=== PATIENT | female | born 1950 | race Caucasian/White ===

== ENCOUNTER 2017-03-26 15:19 | Inpatient (IN) | payer MEDICARE ==
[2017-03-26 16:10] VITALS: BMI 28.5
--- NOTE | 2017-03-26 18:29 | ULT ---
EXAM: CAROTID ULTRASOUND 03/26/17 HISTORY: Transient ischemic attack. COMPARISON: None. TECHNIQUE: Carbajal scale, color flow, doppler imaging with spectral waveform analysis performed in the carotid and vertebral arteries. FINDINGS: RIGHT CAROTID: There is minimal atherosclerotic disease in the right carotid bulb. Peak systolic velocity of the com mon carotid artery is 98 cm/s. Peak systolic velocity of the internal carotid artery is 96 cm/s. Syst olic ICA to CCA ratio is 1.0. LEFT CAROTID: Small amount of atherosclerotic disease in the mid to distal common carotid artery. Peak systolic vance ocity of the common carotid artery is 109 cm/s. Peak systolic velocity of the internal carotid artery is 108 cm/s. Systolic ICA to CCA ratio is 1.0. Antegrade flow in bilateral vertebral arteries. IMPRESSION: No sonographic evidence of hemodynamically significant stenosis. POS: MALLORY
[2017-03-26] MEDS ORDERED: Aspirin 81 mg Enteric Coated Tablet PO SCH (18:30)
[2017-03-26 19:03] LABS: #Basophils 0.1 thou/uL (0.0-0.2); #Eosinphils 0.1 thou/uL (0.0-0.7); #Lymphocytes 2.8 thou/uL (1.20-3.40); #Monocytes 0.4 thou/uL (0.11-0.59); #Neutrophils 3.1 thou/uL (1.40-6.50); %Basophils 0.8 % (0.0-1.0); %Eosinophils 1.6 % (0.0-10.0); %Lymphocytes 43.2 % (21.0-51.0); %Monocytes 6.8 % (0.0-10.0); %Neutrophils 47.5 % (42.0-75.0); Hemoglobin 14.7 g/dL (12.0-16.0); Mean Corpuscular HGB CONC 35.2 g/dL (32.0-36.0); Mean Corpuscular Hemoglobin 33.3 pg (27.0-31.0); Mean Corpuscular Volume 94.7 fl (81.0-99.0); Platelet Count 235 thou/uL (130-400); RBC Distribution Width 11.8 % (11.5-14.5); Red Blood Cell (RBC) Count 4.39 mill/uL (4.20-5.40); White Blood Cell (WBC) Count 6.4 thou/uL (4.8-10.8)
[2017-03-26 19:08] LABS: Prothrombin Time 13.5 SEC (12.0-14.7)
[2017-03-26 19:17] LABS: ALT (SGPT) 18 U/L (8-55); AST (SGOT) 18 U/L (5-34); Albumin 4.4 g/dL (3.4-4.8); Alkaline Phosphatase 70 U/L (40-150); Anion Gap 13 mmol/L (10-20); BUN (Urea Nitrogen) 25 mg/dL (9.8-20.1); Bilirubin, Total 0.6 mg/dL (0.2-1.2); Calc. Creatinine Clearance 81 mL/min (70-130); Calcium 9.9 mg/dL (7.8-10.44); Carbon Dioxide 26 mmol/L (23-31); Chloride 106 mmol/L (98-107); Estimated GFR-MDRD 85; Glucose 89 mg/dL (80-115); Potassium 3.8 mmol/L (3.5-5.1); Protein, Total 7.4 g/dL (6.0-8.3); Sodium 141 mmol/L (136-145)
[2017-03-26 19:50] LABS: Folate (Folic Acid) 10.6 ng/mL (7.0-31.4)
--- NOTE | 2017-03-26 20:33 | HP-2 ---
TIME AND DATE OF SERVICE: 1640 on 03/26/2017. CODE STATUS: FULL CODE. PRIMARY CARE PHYSICIAN: Direct admit from Dr. Dimas. ATTENDING: Dr. Jaramillo. RESIDENT: Duran Licona MD HISTORIAN: Patient. CHIEF COMPLAINT: TIA symptoms. HISTORY OF PRESENT ILLNESS: Savanna Shankar is a 66-year-old female with past medical history of hypertension and gastric sleeve surgery, who presents as a direct admit from Dr. Dimas for TIA workup. The patient has experienced over 40 episodes of left arm numbness and weakness starting in January, and the patient and feel that episodes were occurring much more frequency and lasting longer as of late. Initially, the symptoms lasted only a few minutes, but the most recent episode just a few days ago, lasted over an hour. The patient was recently seen at [facility] in [place] and had some work done, she was told was all negative. The patient denies any vision changes, dizziness, loss of consciousness, syncope, seizures, tongue biting, incontinence , chest pain, palpitations, dyspnea, vertigo during, before or after these episodes. The patient states that in between the episodes, she is completely asymptomatic. She does state, however, that she can tell when the episodes are going to begin, but she is unable to describe how she is able to tell. She does not smell anything or have visual changes. She states possibly dizzy, but she was very unsure. The patient endorses being "high strong and having a type A personality" but says that these symptoms are not related to her stressful situations. PAST MEDICAL HISTORY: Hypertension. PAST SURGICAL HISTORY: 1. Gastric sleeve surgery. 2. Laparoscopic cholecystectomy. 3. Total abdominal hysterectomy. 4. Breast reduction. 5. Tummy tuck. 6. Liposuction. ALLERGIES: No known drug allergies. MEDICATIONS: Valsartan and weekly allergy shots. FAMILY HISTORY: Type 2 diabetes mellitus in father and brother had a stroke. Brother still living. SOCIAL HISTORY: The patient denies tobacco, alcohol, or drug use. She is . REVIEW OF SYSTEMS: A 12-point review of systems including general, eyes, ENT, respiratory, CV, GI, , skin, musculoskeletal, neuro, and psych were all reviewed and were negative unless otherwise stated in the HPI with the exception of constipation that the patient takes [id number] medicine for. PHYSICAL EXAMINATION: VITAL SIGNS: Blood pressure, pulse, respiratory rate, temperature, pulse ox were not yet performed as the patient was a direct admit and was seen immediately upon arriving to her room. GENERAL: The patient is alert and oriented x3, in no acute distress. Well developed, well nourished, and appropriately interactive. HEENT: Pupils equal, round, react to light and accommodation. Extraocular muscles intact. Conjunctivae within normal limits. ENT: Nasal mucosa and oropharynx within normal limits. NECK: Supple without lymphadenopathy, thyromegaly, and no bruits. CARDIOVASCULAR: Regular rate and rhythm. No murmurs or gallops. Radial and pedal pulses equal and regular bilaterally. RESPIRATORY: Normal effort, no retractions. LUNGS: Clear to auscultation bilaterally. SKIN: Warm and dry without cyanosis or lesions. ABDOMEN: Soft, nontender. Bowel sounds normoactive x4. No mass or distention. EXTREMITIES: No clubbing, cyanosis or pitting edema. MUSCULOSKELETAL: Structure and tone wnl. LABORATORY DATA: No labs available because patient had just arrived to the room. ASSESSMENT AND PLAN: A 66-year-old female with past medical history of hypertension who presents with history of many episodes of transient ischemic attack like symptoms. 1. Transient ischemic attack, admit to stroke. Consider differential diagnosis including stroke, vitamin deficiency, metabolic derangement, thyroid disorders could possibly be stress related. We will check a TSH, B12, folate, fasting lipid panel, hemoglobin A1c, brain MRI, carotid Dopplers, and transthoracic echocardiogram. We will also check a 12-lead echocardiogram. 2. Hypertension. Continue home medications and monitor vitals. 3. Code status: FULL CODE. 4. Deep venous thrombosis prophylaxis, Lovenox. 5. Activity: ad luna. 6. Diet: Heart healthy with low sodium. DISPOSITION AND LENGTH OF HOSPITAL STAY: 2-3 days. Symptomatic medication will be provided. History and physical exam as well as management were discussed with Dr. Jaramillo. LORIE
[2017-03-26] MEDS: Atorvastatin Calcium 40 MG TAB PO SCH (20:43)
[2017-03-27 05:38] LABS: Cardiac Risk 3.2 (Less than 4.5)
--- NOTE | 2017-03-27 06:00 | PDOC.FM ---
- Subjective Subjective: Savanna Shankar is doing well this morning. She states that she did not get a great night of sleep due to the bed. She also states that yesterday evening she had two more brief one minute episodes of L sided weakness in her arms and legs that resolved completely and symptoms havent returned since then. She denies any other issues this morning. - Objective MAR Reviewed: Yes Vital Signs & Weight: Vital Signs (12 hours) Temp Pulse Resp BP Pulse Ox 03/27/17 03:03 98.1 F 64 16 120/60 95 03/26/17 23:25 97.6 F 62 16 179/72 H 97 03/26/17 19:15 98 F 68 16 170/78 H 96 03/26/17 19:05 98 F 68 16 96 Weight Weight 66.361 kg Result Diagrams: 03/26/17 18:39 03/26/17 18:39 <Duran Licona - Last Filed: 03/27/17 08:22> - Objective Vital Signs & Weight: Vital Signs (12 hours) Temp Pulse Resp BP Pulse Ox 03/27/17 19:04 98.5 F 67 16 139/67 96 03/27/17 15:03 97.8 F 60 18 139/63 96 03/27/17 11:03 97.5 F L 58 L 18 126/67 96 03/27/17 08:45 98 F 62 18 98 Weight Weight 66.361 kg I&O: 03/26/17 03/27/17 03/28/17 06:59 06:59 06:59 Intake Total 120 Balance 120 Result Diagrams: 03/26/17 18:39 03/26/17 18:39 <Telma Francisco - Last Filed: 03/27/17 19:14> Phys Exam - Physical Examination Constitutional: NAD HEENT: moist MMs, sclera anicteric Neck: no JVD, supple, full ROM Respiratory: no wheezing, no rales, no rhonchi, clear to auscultation bilateral Cardiovascular: RRR, no significant murmur, no rub Gastrointestinal: soft, non-tender, no distention Musculoskeletal: no edema Neurological: non-focal, normal sensation, moves all 4 limbs Psychiatric: normal affect, A&O x 3 Skin: normal turgor <Duran Licona - Last Filed: 03/27/17 08:22> Dx/Plan (1) TIA (transient ischemic attack) Status: Acute Plan: Greater than 40 episodes of Left Sided weakness/numbness in arms/legs starting in January Symptoms typically last minutes and resolve completely with no symptoms in between episodes Episodes have been becoming more frequent and lasting longer No chest pain, palpitations, vision changes, seizure like activity, GALLAGHER, facial droop Work-up TIA: Consult Neuro this morning, Carotid Doppler was negative for any hemodynamically significant stenosis TTE order, Brain MRI order TSH normal, B12 normal, Folate Normal, Cholesterol of 202 (2) Hypertension Code(s): I10 - ESSENTIAL (PRIMARY) HYPERTENSION Status: Acute Plan: Continue home meds <Duran Licona - Last Filed: 03/27/17 08:22> Attending Addendum - Attending Addendum I personally evaluated the patient and discussed the management with Dr. Licona. I agree with the History, Examination, Assessment and Plan documented above with any addition or exceptions noted below. The patient had two more episodes of tingling late last night after carotid doppler. She is feeling well this morning. Results for carotid, mri and echo are pending. Neurology has been consulted. <Telma Francisco - Last Filed: 03/27/17 19:14>
[2017-03-27] MEDS: Valsartan 80 MG TAB PO SCH (09:56)
[2017-03-27] MEDS: Aspirin 81 mg Enteric Coated Tablet PO SCH (09:57)
--- NOTE | 2017-03-27 13:17 | CON ---
DATE OF CONSULTATION: 03/27/2017 NEUROLOGY CONSULTATION CONSULTING PHYSICIAN: [facility]. IMPRESSION: Transient ischemic attack versus seizure related events versus migraine without headach e. PLAN: 1. Aspirin and Plavix. 2. Keppra 500 mg twice a day. 3. Monitor response to therapy. HISTORY OF PRESENT ILLNESS: Ms. Shankar is a 66-year-old white female with past history of hypertensi on and gastric sleeve surgery. For the last few months, she has been experiencing multiple episodes of transient left-sided weakness and never affects her speech or her face. The episodes had most of lasted 15 minutes. Most of them only last a minute or two. She has difficulty walking when it occur s. She notes some heaviness in her left hand and has difficulty writing or using her phone. The epi sodes have never left any persistent deficits. She was seen in [place] in the emergency room and her workup at that time was unremarkable. She was treated for B12 deficiency which had no effect on the events. She has had 3 events in the last day or two. She actually had an episode while I was examin ing her, this lasted about 1 minute. There was no slurred speech or effect on her ability to carry o n conversation or follow commands. It was notable for fix and drift in the left hand during the even t. Sensation was intact. Plantar responses remain downgoing. PAST MEDICAL HISTORY: As noted above. ALLERGIES: None. SOCIAL HISTORY: No tobacco or alcohol use. She is to a insurance office manager. FAMILY HISTORY: Noncontributory. REVIEW OF SYSTEMS: Otherwise, negative. PHYSICAL EXAMINATION: GENERAL: She is a healthy appearing middle-aged woman, in no distress. VITAL SIGNS: Blood pressure 126/67, temperature 97.5, pulse 58, respirations 18. HEENT: Pupils equal and reactive. Conjunctivae clear. Oropharynx clear. NECK: Supple. EXTREMITIES: No cyanosis, clubbing or edema. NEUROLOGIC: She is alert and appropriate. Her speech is fluent and clear. Cranial nerves are intac t. Motor exam after the event was unremarkable. Sensation was intact to light touch. No abnormal m ovements were seen. She can walk independently. LABORATORY STUDIES: Including a CBC, coags, and chemistry panel were all unremarkable. Carotid ultrasound did not show any stenosis. MRI of the brain showed a moderate amount of subcortic al white matter ischemic changes that appears chronic. SUMMARY: A very unusual story of multiple episodes of left-sided weakness lasting only brief interva ls of time without any residual effect. I would cover her for TIA with antiplatelet therapy and a st atin and also tried any antiepileptic approach to see if she responds to treatment.
--- NOTE | 2017-03-27 13:44 | MRI ---
NONCONTRAST BRAIN MRI: CLINICAL HISTORY: Left-sided weakness. COMPARISON: No prior imaging for comparison. FINDINGS: There is no acute territorial infarction, intracranial mass effect, midline shift, or ventriculomegal y. Mild parenchymal volume loss is present, and there is mild to moderate chronic microvascular isch emic disease. The imaged skull base flow voids are maintained. There is no intracranial or hemorrha gic susceptibility. IMPRESSION: 1. No acute intracranial abnormality. 2. Mild to moderate chronic microvascular ischemic disease. POS: MALLORY
[2017-03-27] MEDS ORDERED: Clopidogrel Bisulfate 75 MG TAB PO SCH (14:00)
[2017-03-27] MEDS ORDERED: Polyethylene Glycol 3350 17 GM Packet PO PRN (14:35)
--- NOTE | 2017-03-27 15:23 | PDOC.EVN ---
Event Note - Event Note Event Note: S: Visited patient at bedside for reexamination and to answer questions. Patient is still doing well and not having any complaints. Dr. Burger did come see patient and started Keppra, Asa, and Plavix. Brain MRI, B/l carotid doppler, and TTE have been performed. Patient states that she is had a couple quick episodes of left arm numbling and "tremors" today and she feels confused afterwards, "like it is hard to find my words". Denies any other complaints. O: Gen: In no distress CV: RRR no murmurs Resp: CTAB Msk/Neuro: Non-focal, normal sensation, normal strength and FROM A/P: Brain MRI and Carotid Doppler were unremarkable, ECHO results pending. Dr. Tariq has started Mrs. Shankar on Keppra, ASA, and plavix. We will continue to monitor symptoms.
[2017-03-27] MEDS: Atorvastatin Calcium 40 MG TAB PO SCH (21:04)
[2017-03-27] MEDS: levETIRAcetam 500 MG TAB PO SCH (21:04)
--- NOTE | 2017-03-28 05:43 | PDOC.FM ---
- Subjective Subjective: Mrs. Shankar is doing well this morning. Upon entering the room, she was dressed and said she was ready to go home today. She states that she felt great and felt that her mind was very clear. She denied any fever, chest pain, dyspnea, n/v/d. - Objective MAR Reviewed: Yes Vital Signs & Weight: Vital Signs (12 hours) Temp Pulse Resp BP BP Pulse Ox 03/28/17 04:00 97.9 F 60 16 117/61 100 03/27/17 23:48 98.3 F 82 16 143/69 H 96 03/27/17 19:50 98.5 F 67 16 96 03/27/17 19:04 98.5 F 67 16 139/67 96 Weight Weight 66.361 kg I&O: 03/26/17 03/27/17 03/28/17 06:59 06:59 06:59 Intake Total 120 Balance 120 Result Diagrams: 03/26/17 18:39 03/26/17 18:39 Radiology Reviewed by me: Yes <Duran Licona - Last Filed: 03/28/17 07:20> - Objective Vital Signs & Weight: Vital Signs (12 hours) Temp Pulse Resp BP Pulse Ox 03/28/17 11:55 98.3 F 63 16 126/70 100 03/28/17 08:00 97.7 F 62 16 03/28/17 07:55 97.7 F 62 16 138/65 100 Weight Weight 66.361 kg I&O: 03/27/17 03/28/17 03/29/17 06:59 06:59 06:59 Intake Total 120 240 480 Balance 120 240 480 Result Diagrams: 03/26/17 18:39 03/26/17 18:39 <Telma Francisco - Last Filed: 03/28/17 16:06> Phys Exam - Physical Examination Constitutional: NAD HEENT: moist MMs, sclera anicteric Neck: supple, full ROM Respiratory: no wheezing, no rales, no rhonchi, clear to auscultation bilateral Cardiovascular: RRR, no significant murmur Gastrointestinal: soft, non-tender, no distention Musculoskeletal: no edema Neurological: non-focal, normal sensation, moves all 4 limbs Psychiatric: normal affect, A&O x 3 <Duran Licona - Last Filed: 03/28/17 07:20> Dx/Plan (1) TIA (transient ischemic attack) Status: Acute Plan: Greater than 40 episodes of Left Sided weakness/numbness in arms/legs starting in January Symptoms typically last minutes and resolve completely with no symptoms in between episodes Episodes have been becoming more frequent and lasting longer No chest pain, palpitations, vision changes, seizure like activity, GALLAGHER, facial droop Work-up TIA: 03/27/17- Consult Neuro this morning, Carotid Doppler was negative for any hemodynamically significant stenosis TTE order, Brain MRI order TSH normal, B12 normal, Folate Normal, Cholesterol of 202 03/28/17- Dr. Tariq saw patient yesterday and started patient on Keppra, ASA, and plavix Echo showed EF of 55-60%, Impaired relaxation compatible with diastolic dysfunction (reversed E/A ratio), no thrombus in cardiac chambers Patient stable and likely ready with d/c today to follow up with OP neuro (2) Hypertension Code(s): I10 - ESSENTIAL (PRIMARY) HYPERTENSION Status: Acute Plan: Continue home meds-valsartan BP this morning 117/61 <Duran Licona - Last Filed: 03/28/17 07:20> Attending Addendum - Attending Addendum I personally evaluated the patient and discussed the management with Dr. Licona. I agree with the History, Examination, Assessment and Plan documented above with any addition or exceptions noted below. The patient is feeling better today. Patient's family brought genetic testing she had done previously that indicated plavix metabolism could be abnormal. Will change patient to aggrenox. She will f/u with Dr. Tariq as an outpt. <Telma Francisco - Last Filed: 03/28/17 16:06>
[2017-03-28] MEDS ORDERED: Clopidogrel Bisulfate 75 MG TAB PO SCH (09:00)
[2017-03-28] MEDS: Aspirin 81 mg Enteric Coated Tablet PO SCH (09:21)
[2017-03-28] MEDS: Valsartan 80 MG TAB PO SCH (09:21)
[2017-03-28] MEDS: levETIRAcetam 500 MG TAB PO SCH (09:21)
[2017-03-28 11:55] VITALS: BP 126/70; TEMP 98.3
--- NOTE | 2017-03-28 21:52 | DIS-2 ---
ADMISSION DATE: 03/26/2017 DISCHARGE DATE: 03/28/2017 RESIDENT: Duran Licona M.D. ADMITTING ATTENDING: Dr. Jaramillo. DISCHARGE ATTENDING: Dr. Francisco. CONSULTATIONS: Neurology, Dr. Tariq on 03/27/2017. PROCEDURES: 1. Carotid Doppler study. Impression: No sonographic evidence of hemodynamically significant stenosis. 2. Brain MRI. Impression: No acute intracranial abnormality. Mild to moderate chronic microvascular ischemic disease. 3. Echocardiogram. Summary: Ejection fraction is visually estimated at 55% to 60%, impaired relaxation compatible with diastolic dysfunction 4. No thrombus is noted in the cardiac chambers. PRIMARY DIAGNOSIS: Transient ischemic attack. SECONDARY DIAGNOSIS: Hypertension. DISCHARGE MEDICATIONS: 1. Valsartan 80 mg p.o. daily. 2. Aspirin 81 mg p.o. daily. 3. Multivitamin 1 each p.o. daily. 4. Lubiprostone 24 mcg p.o. p.r.n. 5. Probiotic 1 cap p.o. daily. 6. Aggrenox 1 cap p.o. b.i.d. 7. Atorvastatin 40 mg p.o. at bedtime. 8. Keppra 500 mg p.o. b.i.d. DISCONTINUED MEDICATIONS: Plavix. HISTORY OF PRESENT ILLNESS/HOSPITAL COURSE: Savanna Shankar is a 66-year-old female with past medical history of hypertension and gastric sleeve surgery, who presented to [facility] as a direct admit from Dr. Dimas for TIA workup. The patient had experienced over 40 episodes of left arm numbness and weakness starting in January and the patient and her has felt like these episodes were occurring more frequently and lasting longer. Initially, the symptoms only lasted a few minutes, but more recently similar symptoms have been lasting for over an hour. The patient states that she was recently seen at [facility] in [place] and had some workup done and was told that all workup was negative. The patient denies any vision changes, dizziness, loss of consciousness, syncope, seizures, tongue biting, incontinence, chest pain, palpitations, dyspnea, vertigo during before or after these episodes. However, she does state that after the episodes her mind does not feel is clear and she might have a little confusion like she can find her words. She does state that she can sometimes tell symptoms are going to begin, but is unable to describe. Patient endorses being "high strong and having a type A personality" but states that these symptoms are not related to being in a stressful situation. On admission, the patient was seen in labs and imagings were performed. Patient had normal white blood cell count, normal H&H, normal coags , normal CMP. Her cholesterol was slightly elevated at 202. LDL cholesterol is 122, HDL was 63. Vitamin B12 was 98, folate was 10.6. TSH was 2.1852. Echo was normal. Brain MRI was normal and carotid Dopplers were normal. Dr. Tariq was consulted and saw the patient. In summar, he wanted to cover her for TIA with antiplatelet therapy and statin, and also wanted to try an antiepileptic approach and started Keppra. These medications were initiated. The patient was ready for discharge on 03/28/2017 with a negative workup for TIA with the plan to have close followup with neurologist, Dr. Tariq. Patient was in agreement with this plan and was optimistic and appreciative for her care. DISPOSITION: Stable. DISCHARGE INSTRUCTIONS: 1. Location: Home. 2. Diet: Heart healthy. 3. Activity: As tolerated. 4. Follow up with Dr. Tariq with Neurology. [facility]
== END 2017-03-28 12:38 | disposition home or self-care (01) | DRG 69 ==
LOC: 2SE 15:19
PROVIDERS: ADMIT Family Medicine; ATTEND Family Medicine
DX: G45.9 Transient cerebral ischemic attack, unspecified (principal); I10 Essential (primary) hypertension; K59.00 Constipation, unspecified
CPT/HCPCS: 36415; 70551; 80053; 80061; 82607; 82746; 84443; 85025; 85610; 93306; 93880